=== PATIENT | male | born 1970 | race Caucasian/White ===

== ENCOUNTER 2024-04-24 23:21 | Inpatient (IN) | payer BC, MEDICAID ==
[~2024-04-24] VITALS: Ht 172.7 cm; Wt 94.3 kg
[2024-04-25 00:29] LABS: BASOPHILS % 0.9 % (0.0-2.0); EOSINOPHILS % 0.3 % (0.0-5.0); HEMATOCRIT. 28.6 % (42.0-52.0); HEMOGLOBIN. 9.4 g/dL (14.0-18.0); LYMPHOCYTES % 18.8 % (20.0-50.0); MEAN CORPUSCULAR HEMOGLOBIN 28.9 pg (28.0-32.0); MEAN CORPUSCULAR HGB CONC 32.9 g/dL (31.0-37.0); MEAN CORPUSCULAR VOLUME 87.8 fL (80.0-94.0); MEAN PLATELET VOLUME 7.6 fl (7.4-10.4); MONOCYTES % 13.3 % (2.0-8.0); NEUTROPHILS % 66.7 % (40.0-76.0); PLATELET 574 x1000/uL (130-400); RED BLOOD CELL COUNT 3.25 mill/uL (4.7-6.1); RED CELL DISTRIBUTION WIDTH 20.6 % (11.6-14.6); WHITE BLOOD COUNT 10.8 x1000/uL (4.5-11.0)
[2024-04-25 00:34] LABS: CHLORIDE 87 mEq/L (98-107); POTASSIUM 4.1 mEq/L (3.5-5.1); SODIUM 124 mEq/L (136-145)
[2024-04-25 00:35] LABS: CALCIUM 9.1 mg/dL (8.7-10.4); CARBON DIOXIDE 34 mEq/L (21-32)
[2024-04-25 00:40] LABS: CREATININE 0.6 mg/dL (0.6-1.3); GLUCOSE 114 mg/dL (70-105); UREA NITROGEN BLOOD 11 mg/dL (9-23)
[2024-04-25 00:42] LABS: ALANINE AMINOTRANSFERASE 9 IU/L (10-49); ALBUMIN 3.1 g/dL (3.2-4.8); ASPARTATE AMINOTRANSFERASE 14 IU/L (<34); BILIRUBIN DIRECT 0.2 mg/dL (<=3.0); BILIRUBIN TOTAL 0.4 mg/dL (0.1-1.0); PROTEIN TOTAL 7.4 g/dL (6.0-8.3)
[2024-04-25 00:58] LABS: PROTHROMBIN TIME 11.6 sec (9.6-11.0)
[2024-04-25 01:22] LABS: ETHANOL BLOOD < 10 mg/dL (<10)
[2024-04-25] MEDS: SODIUM CHLORIDE 0.9% 1,000 ML IV ONE (03:00)
[2024-04-25] MEDS: IOHEXOL-300 100 ML BOTTLE ONE (04:23)
[2024-04-25] MEDS: SODIUM CHLORIDE 0.9% 500 ML IV ONE (06:48)
[2024-04-25] MEDS ORDERED: PIPERACILLIN/TAZOBACTAM 3.375 G in DEXTROSE 5% WATER 50 ML IV SCH (08:00)
[2024-04-25] MEDS ORDERED: CLONIDINE 0.1MG TABLET PO PRN (08:00)
[2024-04-25] MEDS ORDERED: MAGNESIUM/ALUMINUM HYDROXIDE/SIMETHICONE 30ML UDC PO PRN (08:00)
[2024-04-25] MEDS: SODIUM CHLORIDE 0.9% 1,000 ML IV SCH ×2 (09:30→15:22)
[2024-04-25] MEDS: PIPERACILLIN/TAZO 3.375G/50ML IV SCH (09:30)
[2024-04-25] MEDS: PANTOPRAZOLE SODIUM 40 MG/VIAL IV SCH (09:31)
[2024-04-25] MEDS: ENOXAPARIN 40MG/0.4ML SYR SUBCUT SCH (09:31)
[2024-04-25 10:00] VITALS: BP 85/56; PULSE 107; RESP 18; TEMP 96.6
[2024-04-25] MEDS: MIDODRINE HCL 5MG TABLET PO SCH ×2 (10:29→17:12)
[2024-04-25] MEDS ORDERED: AMOX-494 MT (10:45)
[2024-04-25] MEDS ORDERED: MIDO5TAB4 MT (10:45)
[2024-04-25] MEDS ORDERED: METH-774 MT (10:45)
[2024-04-25] MEDS ORDERED: ERGO1250 (10:45)
[2024-04-25] MEDS ORDERED: SIME80TA15 MT (10:45)
[2024-04-25] MEDS ORDERED: DEME300T8 PO (10:45)
[2024-04-25] MEDS ORDERED: ZINC1CAP2 (10:45)
[2024-04-25] MEDS ORDERED: ENOX40DI8 SQ (10:45)
[2024-04-25] MEDS ORDERED: DEXT15DR5 EACHEYE (10:50)
[2024-04-25] MEDS ORDERED: ALUM1GRA MC (10:50)
[2024-04-25 12:00] VITALS: BP 98/57; PULSE 97; RESP 18; TEMP 97.9
[2024-04-25] MEDS ORDERED: METRONIDAZOLE 500MG/100ML PREMIX IV SCH (14:00)
[2024-04-25] MEDS ORDERED: NALOXONE HCL 0.4MG/ML VIAL IV PRN (14:45)
[2024-04-25 16:00] VITALS: BP 95/67; PULSE 97; RESP 18; TEMP 98
[2024-04-25 20:00] VITALS: BP 91/54; PULSE 94; RESP 18; TEMP 97.6
[2024-04-25] MEDS: HYDROCODONE/ACETAMINOPHEN 5/325MG TABLET PO PRN (21:45)
[2024-04-25] MEDS: DIPHENHYDRAMINE 50MG/ML VIAL IV PRN (22:41)
[2024-04-26] VITALS: BP 102/59; PULSE 95; RESP 18; TEMP 96.9
[2024-04-26 04:00] VITALS: BP 120/65; PULSE 89; RESP 18; TEMP 96.6
[2024-04-26 07:07] LABS: BASOPHILS % 0.5 % (0.0-2.0); EOSINOPHILS % 0.4 % (0.0-5.0); HEMOGLOBIN. 8.4 g/dL (14.0-18.0); LYMPHOCYTES % 14.3 % (20.0-50.0); MEAN CORPUSCULAR HEMOGLOBIN 28.6 pg (28.0-32.0); MEAN CORPUSCULAR HGB CONC 32.3 g/dL (31.0-37.0); MEAN CORPUSCULAR VOLUME 88.6 fL (80.0-94.0); MEAN PLATELET VOLUME 7.7 fl (7.4-10.4); MONOCYTES % 12.3 % (2.0-8.0); NEUTROPHILS % 72.5 % (40.0-76.0); PLATELET 526 x1000/uL (130-400); RED BLOOD CELL COUNT 2.93 mill/uL (4.7-6.1); RED CELL DISTRIBUTION WIDTH 20.4 % (11.6-14.6); WHITE BLOOD COUNT 8.4 x1000/uL (4.5-11.0)
[2024-04-26 07:20] LABS: CARBON DIOXIDE 29 mEq/L (21-32); CHLORIDE 94 mEq/L (98-107); POTASSIUM 3.5 mEq/L (3.5-5.1); SODIUM 130 mEq/L (136-145)
[2024-04-26 07:21] LABS: CALCIUM 8.8 mg/dL (8.7-10.4)
[2024-04-26 07:23] LABS: THYROID STIMULATING HORMONE 1.33 uIU/mL (0.55-4.78)
[2024-04-26 07:26] LABS: CREATININE 0.6 mg/dL (0.6-1.3); GLUCOSE 92 mg/dL (70-105); PROTEIN TOTAL 6.4 g/dL (6.0-8.3); TRIGLYCERIDE 100 mg/dL (0-150); UREA NITROGEN BLOOD 10 mg/dL (9-23)
[2024-04-26 07:27] LABS: ALANINE AMINOTRANSFERASE < 7 IU/L (10-49); ALBUMIN 2.6 g/dL (3.2-4.8); ASPARTATE AMINOTRANSFERASE 11 IU/L (<34); LDL CHOLESTEROL 75 mg/dL (5-100)
[2024-04-26 07:28] LABS: BILIRUBIN DIRECT 0.3 mg/dL (<=3.0); BILIRUBIN TOTAL 0.5 mg/dL (0.1-1.0); CHOLESTEROL 116 mg/dL (<200); HDL CHOLESTEROL 20 mg/dL (>55); PHOSPHORUS 4.9 mg/dL (2.5-4.9)
[2024-04-26 07:30] LABS: TROPONIN I HIGH SENSITIVITY < 4 ng/L (3.0-53)
[2024-04-26 08:00] VITALS: BP 95/62; PULSE 78; RESP 22; TEMP 98.6
[2024-04-26] MEDS: ONDANSETRON HCL 4MG/2ML INJ IV PRN (10:57)
[2024-04-26 12:00] VITALS: BP 100/68; PULSE 80; RESP 18; TEMP 98.1
[2024-04-26] MEDS ORDERED: MORPHINE SULFATE 2 MG/ML CPJ (NOT FOR IM USE) IV PRN (12:00)
[2024-04-26] MEDS ORDERED: LORAZEPAM 0.5MG TABLET PO PRN (14:30)
[2024-04-26 16:00] VITALS: BP 89/55; PULSE 87; RESP 16; TEMP 97.9
[2024-04-26] MEDS: HYDROCODONE/ACETAMINOPHEN 10/325MG TABLET PO PRN (16:04)
[2024-04-26 20:00] VITALS: BP 88/49; PULSE 86; RESP 18; TEMP 97.2
[2024-04-26] MEDS: MELATONIN 3MG TABLET PO SCH (20:41)
[2024-04-26] MEDS: ACETAMINOPHEN 325MG TABLET PO PRN (23:17)
[2024-04-27] VITALS: BP 92/51; PULSE 79; RESP 18; TEMP 97.9
[2024-04-27 04:00] VITALS: BP 88/44; PULSE 81; RESP 18; TEMP 97.9
[2024-04-27 07:29] LABS: BASOPHILS % 0.6 % (0.0-2.0); EOSINOPHILS % 0.7 % (0.0-5.0); HEMATOCRIT. 26.1 % (42.0-52.0); HEMOGLOBIN. 8.5 g/dL (14.0-18.0); LYMPHOCYTES % 14.4 % (20.0-50.0); MEAN CORPUSCULAR HEMOGLOBIN 29.1 pg (28.0-32.0); MEAN CORPUSCULAR HGB CONC 32.7 g/dL (31.0-37.0); MEAN CORPUSCULAR VOLUME 88.8 fL (80.0-94.0); MEAN PLATELET VOLUME 7.9 fl (7.4-10.4); MONOCYTES % 11.6 % (2.0-8.0); NEUTROPHILS % 72.7 % (40.0-76.0); PLATELET 513 x1000/uL (130-400); RED BLOOD CELL COUNT 2.94 mill/uL (4.7-6.1); RED CELL DISTRIBUTION WIDTH 20.3 % (11.6-14.6); WHITE BLOOD COUNT 8.3 x1000/uL (4.5-11.0)
[2024-04-27 07:36] LABS: CARBON DIOXIDE 26 mEq/L (21-32); CHLORIDE 97 mEq/L (98-107); POTASSIUM 3.5 mEq/L (3.5-5.1); SODIUM 131 mEq/L (136-145)
[2024-04-27 07:37] LABS: CALCIUM 8.5 mg/dL (8.7-10.4)
[2024-04-27 07:42] LABS: CREATININE 0.6 mg/dL (0.6-1.3); GLUCOSE 126 mg/dL (70-105); UREA NITROGEN BLOOD 9 mg/dL (9-23)
[2024-04-27 09:04] VITALS: BP 98/59; PULSE 85; RESP 18; TEMP 97.6
[2024-04-27] MEDS: FAMOTIDINE 20MG/2ML VIAL IV SCH (09:29)
[2024-04-27] MEDS: HYDROCODONE/ACETAMINOPHEN 5/325MG TABLET PO PRN (09:39)
[2024-04-27 12:00] VITALS: BP 90/54; PULSE 79; RESP 18; TEMP 97.2
[2024-04-27 16:00] VITALS: BP 94/58; PULSE 83; RESP 18; TEMP 97.1
[2024-04-27] MEDS ORDERED: IPRATROPIUM/ALBUTEROL 0.5-3(2.5)MG/3ML NEB HHN PRN (16:15)
[2024-04-27 20:00] VITALS: BP 95/57; PULSE 82; RESP 18; TEMP 97.6
[2024-04-28 04:00] VITALS: BP 94/58; PULSE 104; RESP 18; TEMP 97.3
[2024-04-28 08:00] VITALS: BP 93/59; PULSE 93; RESP 18; TEMP 97.3
[2024-04-28] MEDS: MULTIVITAMINS,THER W-MINERALS TABLET PO SCH (08:57)
[2024-04-28 12:00] VITALS: BP 99/67; PULSE 81; RESP 18; TEMP 97.1
[2024-04-28 16:00] VITALS: BP 92/58; PULSE 87; RESP 18; TEMP 97.3
[2024-04-28 20:00] VITALS: BP 93/51; PULSE 83; RESP 18; TEMP 97.4
[2024-04-29] VITALS: BP 96/63; PULSE 89; RESP 18; TEMP 97.4
[2024-04-29 04:00] VITALS: BP 94/56; PULSE 96; RESP 18; TEMP 97.6
[2024-04-29 06:17] LABS: CARBON DIOXIDE 29 mEq/L (21-32); CHLORIDE 100 mEq/L (98-107); POTASSIUM 4.4 mEq/L (3.5-5.1); SODIUM 133 mEq/L (136-145)
[2024-04-29 06:18] LABS: CALCIUM 8.6 mg/dL (8.7-10.4)
[2024-04-29 06:22] LABS: CREATININE 0.5 mg/dL (0.6-1.3)
[2024-04-29 06:23] LABS: GLUCOSE 110 mg/dL (70-105); UREA NITROGEN BLOOD 11 mg/dL (9-23)
[2024-04-29 06:28] LABS: BASOPHILS % 0.5 % (0.0-2.0); EOSINOPHILS % 0.6 % (0.0-5.0); HEMATOCRIT. 27.4 % (42.0-52.0); HEMOGLOBIN. 8.8 g/dL (14.0-18.0); LYMPHOCYTES % 14.4 % (20.0-50.0); MEAN CORPUSCULAR HEMOGLOBIN 28.6 pg (28.0-32.0); MEAN CORPUSCULAR HGB CONC 32.1 g/dL (31.0-37.0); MEAN CORPUSCULAR VOLUME 89.2 fL (80.0-94.0); MEAN PLATELET VOLUME 7.6 fl (7.4-10.4); NEUTROPHILS % 75.5 % (40.0-76.0); PLATELET 557 x1000/uL (130-400); RED BLOOD CELL COUNT 3.07 mill/uL (4.7-6.1); RED CELL DISTRIBUTION WIDTH 19.9 % (11.6-14.6); WHITE BLOOD COUNT 8.5 x1000/uL (4.5-11.0)
[2024-04-29 08:22] VITALS: BP 90/55; PULSE 99; RESP 18; TEMP 97.9
[2024-04-29 11:59] VITALS: BP 91/55; PULSE 94; RESP 19; TEMP 97.1
[2024-04-29 15:50] VITALS: BP 96/60; PULSE 95; RESP 18; TEMP 97.7
[2024-04-29 20:00] VITALS: BP 91/54; PULSE 91; RESP 18; TEMP 97.9
[2024-04-30] VITALS: BP 95/56; PULSE 79; RESP 18; TEMP 97.5
[2024-04-30 04:00] VITALS: BP 96/58; PULSE 78; RESP 20; TEMP 99
[2024-04-30 08:59] VITALS: BP 91/54; PULSE 80; RESP 20; TEMP 97.7
[2024-04-30 12:03] VITALS: BP 93/56; PULSE 76; RESP 20; TEMP 97
[2024-04-30 16:45] VITALS: BP 97/55; PULSE 74; RESP 20; TEMP 98.1
[2024-04-30 20:00] VITALS: BP 98/60; PULSE 99; RESP 20; TEMP 99.3
[2024-05-01] VITALS: BP 93/56; PULSE 97; RESP 18; TEMP 97.2
[2024-05-01 04:00] VITALS: BP 97/55; PULSE 81; RESP 18; TEMP 97.2
[2024-05-01 08:00] VITALS: BP 89/43; PULSE 99; RESP 20; TEMP 98
[2024-05-01] MEDS ORDERED: MELA3TAB40 PO (09:04)
[2024-05-01 10:30] LABS: *AMPHETAMINES SCREEN URINE NEGATIVE (NEGATIVE); *BARBITURATES SCREEN URINE NEGATIVE (NEGATIVE); *BENZODIAZEPINES SCREEN URINE NEGATIVE (NEGATIVE); *COCAINE SCREEN URINE NEGATIVE (NEGATIVE); CANNABINOID URINE SCREEN NEGATIVE (NEGATIVE); ECSTASY MDMA SCREEN URINE NEGATIVE (NEGATIVE); METHADONE URINE SCREEN NEGATIVE (NEGATIVE); OPIATES URINE SCREEN PRESUMPTIVE POSITIVE (NEGATIVE); PHENCYCLIDINE URINE SCREEN NEGATIVE (NEGATIVE)
[2024-05-01 12:00] VITALS: BP 89/54; PULSE 98; RESP 18; TEMP 98.3
[2024-05-01 15:31] VITALS: BP 99/54; PULSE 97; RESP 18; TEMP 99
[2024-05-01] MEDS: MIDODRINE HCL 5MG TABLET PO SCH (17:29)
[2024-05-01 20:21] VITALS: BP 91/57; PULSE 91; RESP 18; TEMP 100.4
[2024-05-02] VITALS (7 sets, daily range): BP systolic 94–99; BP diastolic 56–60; PULSE 79–99; RESP 18–20; TEMP 97.4–99.3; O2SAT 97
== END 2024-05-02 22:06 | DRG 371 ==
LOC: ER 23:29 → 5WST 04-25 04:20 → 7WST 04-25 07:44
PROVIDERS: ADMIT Specialist; ATTEND Specialist
DX: K65.1 Peritoneal abscess (principal); G92.9 Unspecified toxic encephalopathy; L89.153 Pressure ulcer of sacral region, stage 3; K56.609 Unspecified intestinal obstruction, unspecified as to partial versus complete obstruction; J96.11 Chronic respiratory failure with hypoxia; I42.9 Cardiomyopathy, unspecified; K63.2 Fistula of intestine; I11.0 Hypertensive heart disease with heart failure; E11.9 Type 2 diabetes mellitus without complications; J45.909 Unspecified asthma, uncomplicated; I50.9 Heart failure, unspecified; Z91.048 Other nonmedicinal substance allergy status; Z93.3 Colostomy status; Z93.1 Gastrostomy status; Z90.49 Acquired absence of other specified parts of digestive tract; Z74.01 Bed confinement status; Z87.01 Personal history of pneumonia (recurrent)
CPT/HCPCS: 36415; 71045; 74177; 80048; 80061; 80076; 80305; 80320; 82962; 83605; 83735; 84100; 84439; 84443; 84484; 84550; 85025; 93005; 93306; 93970; 99285; A6261; C9113; J1200; J1650; J2405; J2543; J3490; J7030; Q9967; G0480